=== PATIENT | female | born 1955 | race Caucasian/White ===

== ENCOUNTER → 2016-05-18 | Outpatient (CLI) | payer BC | LOC: LAB 15:39 | DX: Z51.81 Encounter for therapeutic drug level monitoring (principal); Z79.899 Other long term (current) drug therapy ==

== ENCOUNTER 2020-05-16 08:54 | Outpatient (RCR) | payer BC | END 2020-06-17 17:00 | disposition home or self-care (01) | LOC: PT 08:54 | DX: M25.512 Pain in left shoulder (principal) ==

== ENCOUNTER → 2020-06-24 | Outpatient (CLI) | payer BC | LOC: RAD 08:51 | DX: M19.012 Primary osteoarthritis, left shoulder (principal); M94.212 Chondromalacia, left shoulder; S43.402A Unspecified sprain of left shoulder joint, initial encounter ==

== ENCOUNTER 2020-08-22 08:58 | Outpatient (RCR) | payer BC | END 2020-11-20 | disposition home or self-care (01) | LOC: PT | DX: M25.512 Pain in left shoulder (principal); Z96.612 Presence of left artificial shoulder joint ==

== ENCOUNTER 2020-11-27 08:48 | Outpatient (RCR) | payer BC | END 2021-02-25 | disposition home or self-care (01) | LOC: PT | DX: M25.512 Pain in left shoulder (principal) ==

== ENCOUNTER → 2021-02-11 | Outpatient (CLI) | payer BC | LOC: RAD 08:03 | DX: M25.512 Pain in left shoulder (principal); Z96.612 Presence of left artificial shoulder joint ==

== ENCOUNTER 2021-02-26 08:30 | Outpatient (RCR) | payer BC | END 2021-02-26 09:00 | disposition still patient (30) | LOC: PT 08:30 | DX: M25.512 Pain in left shoulder (principal) ==

== ENCOUNTER 2021-03-03 08:30 | Outpatient (RCR) | payer BC | END 2021-03-30 | disposition home or self-care (01) | LOC: PT | DX: M25.512 Pain in left shoulder (principal); Z96.612 Presence of left artificial shoulder joint ==

== ENCOUNTER 2021-04-15 08:30 | Outpatient (RCR) | payer BC | END 2021-04-27 | disposition home or self-care (01) | LOC: PT | DX: M25.512 Pain in left shoulder (principal); Z96.612 Presence of left artificial shoulder joint ==

== ENCOUNTER → 2021-04-29 | Outpatient (CLI) | payer BC | LOC: RAD 08:30 | DX: Z98.890 Other specified postprocedural states (principal) ==

== ENCOUNTER 2021-05-06 08:30 | Outpatient (RCR) | payer BC | END 2021-05-28 | disposition home or self-care (01) | LOC: PT | DX: M25.512 Pain in left shoulder (principal); Z96.612 Presence of left artificial shoulder joint ==

== ENCOUNTER → 2022-04-28 | Outpatient (CLI) | payer BC | LOC: RAD 08:00 | DX: Z96.612 Presence of left artificial shoulder joint (principal) ==